=== PATIENT | female | born 1945 | race Caucasian/White ===

== ENCOUNTER 2020-02-06 23:23 | Emergency (ER) | payer OTHER ==
[~2020-02-06] VITALS: Ht 167.6 cm; Wt 81.6 kg
[2020-02-06 23:38] VITALS: Ht 167.6 cm; Wt 81.6 kg
[2020-02-07 00:32] LABS: BASOPHIL % 0.3 % (0-2); RED CELL DISTRIBUTION WIDTH 13.6 % (11.5-14.5)
[2020-02-07 00:41] LABS: CALCIUM 8.3 mg/dL (8.5-10.1); CARBON DIOXIDE 27.7 mmol/L (21-32); CHLORIDE SERUM 98 mmol/L (98-107); GLUCOSE SERUM 142 mg/dL (74-106); SODIUM SERUM 133 mmol/L (136-145)
[2020-02-07 00:45] LABS: PLATELET COUNT 90 x10^3mcL (130-400)
[2020-02-07 00:46] LABS: ALBUMIN 3.8 g/dL (3.4-5.0); ALKALINE PHOSPHATASE 55 U/L (46-116); ALT/SGPT 20 U/L (14-59); AST/SGOT 21 U/L (15-37); BILIRUBIN TOTAL 0.41 mg/dL (0.20-1.00); C REACTIVE PROTEIN 5.3 mg/dL (<=0.9); LACTIC DEHYDROGENASE (LDH) 270 U/L (100-190); TOTAL PROTEIN, SERUM 7.7 g/dL (6.4-8.2)
[2020-02-07 01:01] LABS: microscopic required? YES; urine erythrocyte NEGATIVE (NEGATIVE)
[2020-02-07 02:45] VITALS: BP 116/69
== END 2020-02-07 02:45 | disposition home or self-care (01) ==
LOC: ED 23:23
PROVIDERS: Student in an Organized Health Care Education/Training Program
DX: U07.1 COVID-19 (principal); N39.0 Urinary tract infection, site not specified; J12.89 Other viral pneumonia; I10 Essential (primary) hypertension; E11.9 Type 2 diabetes mellitus without complications
CPT/HCPCS: 83880; Q0092; U0003-CS